=== PATIENT | female | born 2000 | race Caucasian/White ===

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

== ENCOUNTER 2021-03-19 01:56 | Emergency (ER) | payer OTHER ==
[2021-03-19] MEDS ORDERED: AUGMENTIN 875875 MG PO ×3 (05:01→05:16)
[2021-03-19] MEDS ORDERED: CIPRODEX 0.3%-7.5 ML OT ×3 (05:01→05:16)
== END 2021-03-19 05:10 | disposition home or self-care (01) ==
LOC: ED 01:56
DX: H66.91 Otitis media, unspecified, right ear (principal); H60.91 Unspecified otitis externa, right ear; Z79.899 Other long term (current) drug therapy